=== PATIENT | female | born 1975 | race Caucasian/White ===

== ENCOUNTER 2017-03-19 13:15 | Emergency (ER) | payer OTHER ==
[~2017-03-19] VITALS: Ht 157.5 cm; Wt 64.5 kg
[2017-03-19 13:18] VITALS: Ht 157.5 cm; Wt 64.5 kg
[2017-03-19 14:33] LABS: URINE BLOOD (Dip) POC Negative (NEGATIVE)
--- NOTE | 2017-03-19 15:08 | ERD ---
ER Documentation Chief Complaint Chief Complaint Complains of left breast pain x 1 week HPI 41 y/o female, previously healthy, presents to the ED c/o 7 days with insidious onset of sharp pain in left breast that radiates to her left shoulder. Pain is constant, reproducible by palpation, 3/10. No treatment attempted. Denies SOB, palpitations, no breast masses ROS All systems reviewed and are negative except as per history of present illness. Allergies Allergies: Uncoded Allergies: UNKNOWN ANTIBIOTIC (Allergy, Unknown, 03/19/17) PMhx/Soc Medical and Surgical Hx: pt denies Medical Hx, pt denies Surgical Hx Hx Alcohol Use: No Hx Substance Use: No Hx Tobacco Use: No Physical Exam Vitals Vital Signs Date Time Temp Pulse Resp B/P Pulse Ox O2 Delivery O2 Flow Rate FiO2 03/19/17 13:18 98.8 60 20 116/56 100 Physical Exam Head: Atraumatic Eyes: Normal Conjunctiva Resp: Clear to auscultation bilaterally Cardio: Regular rate and rhythm, no murmurs Breast Symmetric, no masses or lumps, no nipple discharge. No skin changes Abd: Soft, non tender, non distended. Normal bowel sounds Skin: No petechiae or rashes Results 24 hrs Laboratory Tests Test 03/19/17 14:33 Bedside Urine pH (LAB) 7.5 Bedside Urine Protein (LAB) Negative Bedside Urine Glucose (UA) Negative Bedside Urine Ketones (LAB) Negative Bedside Urine Blood Negative Bedside Urine Nitrite (LAB) Negative Bedside Urine Leukocyte Esterase (L Negative Procedures/MDM Left chest pain: Low suspicion for acute coronary event. EKG: sinus rhythm, no ST elevation, no t wave inversion. Differential diagnosis: Acute coronary event , mastalgia, breast infection, gastritis, costochondritis. Physical exam most likely consistent with mastalgia. Per patient mammogram last year was normal. Recommend f/u with her PCP and routine annual mammogram Departure Diagnosis: Primary Impression: Atypical chest pain Additional Impression: Mastodynia of left breast Condition: Stable Patient Instructions: Breast Exam, Clinical, Breast Health: Normal Breast Changes Comments Please schedule a follow up appointment with your primary doctor in 2 -4 days and bring all the information and prescriptions that we have given to you today. If the doctor is unavailable and the symptoms persist or worsen please return to the emergency department VINITA AKERS MD Mar 19, 2017 15:08
[2017-03-19] MEDS ORDERED: IBUP-1542 PO (15:22)
[2017-03-19 15:32] VITALS: BP 116/56; RESP 20; TEMP 98.7
== END 2017-03-19 15:33 | disposition home or self-care (01) ==
LOC: FTE 13:15
DX: R07.89 Other chest pain (principal)
CPT/HCPCS: 81003; Z7502; 93005